=== PATIENT | female | born 1940 | race Caucasian/White ===

== ENCOUNTER 2019-08-08 05:40 | Day surgery (SDC) | payer OTHER ==
[~2019-08-08] VITALS: Ht 157.5 cm; Wt 69.1 kg
[~2019-08-08 05:40] MED LIST: CHOL100018 PO; CYAN50008 PO; CeFAZolin 2 GM/DEXTROSE 50 ML IV ONE; FAMO20 PO; METF-960 PO; RINGERS SOLUTION,LACTATED 1,000 ML IV ONE
[2019-08-08] MEDS ORDERED: ROCURONIUM BROMIDE 10 MG/ML 5 ML VIAL IVP ONE (05:41)
[2019-08-08] MEDS ORDERED: NEOSTIGMINE METHYLSULFATE 1 MG/ML 10 ML VIAL IVP ONE (05:41)
[2019-08-08] MEDS ORDERED: LIDOCAINE/PF 2% 5 ML VIAL IM ONE (05:41)
[2019-08-08] MEDS ORDERED: ONDANSETRON HCL 4 MG/2 ML VIAL IVP ONE (05:41)
[2019-08-08] MEDS ORDERED: FentaNYL CITRATE-PF 100 MCG/2 ML VIAL IVP ONE (05:41)
[2019-08-08] MEDS ORDERED: SUGAMMADEX SODIUM 200 MG/2 ML VIAL IVP ONE ×2 (05:41→09:28)
[2019-08-08] MEDS ORDERED: KETOROLAC TROMETHAMINE 60 MG/2 ML VIAL IM ONE (05:41)
[2019-08-08] MEDS ORDERED: PROPOFOL 1% 20 ML VIAL IVP ONE (05:41)
[2019-08-08] MEDS ORDERED: MetroNIDAZOLE 500 MG/NACL 100 ML IV ONE ×2 (06:00→09:00)
[2019-08-08 06:16] LABS: BASOPHILS % (AUTO) 0.9 % (0.0-2.0); HEMATOCRIT 36.9 % (36-46); HEMOGLOBIN 12.1 g/dL (12.0-16.0); LYMPHOCYTES # (AUTO) 2.7 K/uL (1.0-4.8); LYMPHOCYTES % (AUTO) 44.3 % (22.0-44.0); MEAN CORPUSCULAR HEMOGLOBIN 29.8 pg (26.0-34.0); MEAN CORPUSCULAR HGB CONC 32.8 G/dL (31.0-37.0); MEAN CORPUSCULAR VOLUME 91 fL (80-100); MONOCYTES # (AUTO) 0.4 K/uL (0.1-1.0); MONOCYTES % (AUTO) 7.2 % (2.0-9.0); NEUTROPHILS # (AUTO) 2.6 K/uL (1.8-7.7); NEUTROPHILS % (AUTO) 42.6 % (40.0-70.0); PLATELET COUNT (AUTO) 307 K/uL (150-450); RED BLOOD CELL COUNT(AUTO) 4.07 MIL/uL (4.00-5.20); RED CELL DISTRIBUTION WIDTH 12.8 % (11.5-14.5)
[2019-08-08] MEDS ORDERED: LIDOCAINE 2%/EPI 1:200,000/PF 20 ML VIAL ONE (06:16)
[2019-08-08] MEDS ORDERED: BUPIVACAINE HCL/PF 0.25% 30 ML VIAL ONE (06:16)
[2019-08-08] MEDS ORDERED: BUPIVACAINE HCL/PF 0.5% 30 ML VIAL ONE (06:18)
[2019-08-08 06:22] LABS: ANION GAP 7 mmol/L (8-16); CALCIUM, TOTAL 9.2 mg/dL (8.8-10.5); CARBON DIOXIDE 26 mmol/L (22-29); CHLORIDE 98 mmol/L (98-107); CREATININE 0.75 mg/dL (0.60-1.30); GLUCOSE,RANDOM 113 mg/dL (70-110); POTASSIUM 4.5 mmol/L (3.5-5.1); SODIUM SERUM 131 mmol/L (136-145); UREA NITROGEN, BLOOD 15 mg/dL (7-18)
[2019-08-08 06:25] LABS: GLOMERULAR FILTR. RATE CALC > 60 mL/min (>60)
[2019-08-08] MEDS ORDERED: IOHEXOL 240 MG/ML 20 ML VIAL ONE (06:32)
[2019-08-08 06:38] LABS: PROTHROMBIN TIME 9.8 SEC (9.4-11.6)
[2019-08-08] MEDS ORDERED: RINGERS SOLUTION,LACTATED 1,000 ML IV ONE (07:30)
[2019-08-08] MEDS ORDERED: SODIUM CL IRRIG SOLN BAG 0 ML IRRIG ONE (08:44)
[2019-08-08] MEDS ORDERED: FentaNYL CITRATE-PF 100 MCG/2 ML VIAL IVP PRN (08:45)
[2019-08-08] MEDS ORDERED: CeFAZolin 2 GM/DEXTROSE 50 ML IV ONE (09:00)
[2019-08-08] MEDS ORDERED: BUPIVACAINE HCL 0.5% 50 ML VIAL INJ ONE (09:35)
[2019-08-08] MEDS ORDERED: HYDROCODONE/ACETAMINOPHEN 5-325 MG TABLET PO PRN (09:45)
[2019-08-08] MEDS ORDERED: ACETAMINOPHEN 500 MG TABLET PO PRN (09:45)
[2019-08-08] MEDS ORDERED: OXYGEN THERAPY IH SCH (20:00)
== END 2019-08-08 11:45 | disposition home or self-care (01) ==
LOC: SDS 05:40 → EDSTATUS 09:15 → SDS 11:45
PROVIDERS: ATTEND Surgery
DX: K80.12 Calculus of gallbladder with acute and chronic cholecystitis without obstruction (principal); E11.9 Type 2 diabetes mellitus without complications; Z79.899 Other long term (current) drug therapy; Z98.890 Other specified postprocedural states; Z79.01 Long term (current) use of anticoagulants
CPT/HCPCS: 36415; 47562; 80048; 85025; 85610; 85730; 93005; J0690; J3490 ×3; J7120; Q9966; 88304; J1885; J2405; J2704; J3010